=== PATIENT | male | born 1985 | race Caucasian/White ===

== ENCOUNTER 2016-05-14 23:12 | Emergency (ER) | payer OTHER ==
[~2016-05-14] VITALS: Ht 175.3 cm; Wt 113.6 kg
[~2016-05-14 23:12] MED LIST: DOCU-41 PO; IBUP800T28 PO; OXYC-466 PO
[2016-05-14 23:17] VITALS: BP 157/105; PULSE 111; RESP 18; O2SAT 95
[2016-05-15 00:32] LABS: BASOPHILS % (AUTO) 0.6 % (0-3); EOSINOPHILS % (AUTO) 4.4 % (0-5); MONOCYTES % (AUTO) 17.2 % (4-12); Mean Corpuscular Hemoglobin 29.3 pg (27.0-35.0); Mean Corpuscular Volume 81.7 fL (81-100); NEUTROPHILS % (AUTO) 45.8 % (40-74); Platelet Count 335 bil/L (150-400)
[2016-05-15 01:09] LABS: TROPONIN T 0.01 ug/L (0.0-0.011)
[2016-05-15 01:24] LABS: Magnesium 1.8 mg/dL (1.6-2.6)
[2016-05-15] MEDS ORDERED: Alum-Mag Hydrox-Simeth 30 mL Suspension PO ONE (01:35)
--- NOTE | 2016-05-15 02:50 | ED.REPORT ---
HPI-Chest Pain Under 40 Date of Service May 15, 2016 ED Provider: Mayito Simental MD Patient is a 30 year old male who presents to the ED due to mid chest pain onset one day ago. Pt says he has never experienced pain like this before and also complains of neck and shoulder pain. He does not have any pain with inspiration and has no leg or thigh pain or swelling. He has had a right leg boot for the past four months due to a fractured right ankle. Pt has had a mild cold for the past couple days and has felt slightly feverish. Nursing Notes Stated Complaint: CHEST PAIN Chief Complaint: Chest Pain-Non Cardiac Nature Nursing Notes Reviewed: Yes Allergies: Coded Allergies: No Known Allergies (Verified Allergy, Unknown, 03/01/16) Scheduled Omeprazole (Omeprazole) 20 Mg Capsule.dr 20 MG PO BID Scheduled PRN Docusate Sodium (Colace) 100 Mg Capsule 100 MG PO DAILY PRN PRN For Constipation Ibuprofen (Ibuprofen) 800 Mg Tablet 800 MG PO TID PRN PRN For Pain oxyCODONE-Acetaminophen 10-325 mg (oxyCODONE-Acetaminophen 10-325 mg) 1 Each Tablet 1 TABLET PO Q4H PRN PRN For Pain General Time Seen by MD: 01:12 Chief Complaint Chest pain Hx Obtained From: Patient Arrived By: Walk-in Sudden in Onset?: Yes Onset Occurred: Just prior to arrival Symptom Duration: Since onset Radiation: : Does not radiate Severity: Current: Mild Recent Healthcare: No recent doctor visit, No recent hospitalization Similar Sx Previous: No Past Medical History Past Medical History fractured right ankle IBS Past Surgical History None reported Smoking History Never Smoker Social History Alcohol Use: "Social" Drug Use: THC Other Social History: Good social support, Local resident Ambulatory Status Independent Review of Systems Constitutional: Reports: Chills, Fever Cardiovascular: Reports: Chest pain Musculoskeletal: Reports: Joint pain (shoulder), Neck pain, Denies: Extremity pain (no leg or thigh pain) Complete sys rev & neg: except as marked. Physical Exam Initial Vital Signs Vital Signs (First) Date Time Temp Pulse Resp B/P Pulse Ox O2 Delivery O2 Flow Rate FiO2 05/14/16 23:17 36.3 111 18 157/105 95 Room Air Initial VS: Reviewed, Vital signs abnormal Head / Eyes: Atraumatic, Normocephalic, PERRL ENT: Mucous membranes moist, Conjunctiva normal, No scleral icterus Neck: Supple, Non-tender, Full range of motion Abdomen / GI: Soft, Non-tender, No guarding, No rebound, No distention Back: No CVA tenderness Extremities: Vascular intact, Neuro intact, No swelling, No tenderness Skin: Warm, Dry, No cyanosis Neurologic: Alert, Oriented, Nonfocal Psychiatric: Mood/affect normal, Behavior normal, Normal thought content General/Constitutional: Awake, Alert, No acute distress, Well appearing, Well developed, Well hydrated Respiratory / Chest: Atraumatic, Breath sounds NL, Breath sounds = bilat, No respiratory distress, No rales, No rhonchi, No wheezing, No retractions Cardiovascular: Heart rate NL, Regular rhythm, Heart sounds NL, No gallop, No murmurs, No rubs chest nair nontender Interpretation & Diagnostics Interpretation & Diagnostics: CT ANGIOGRAM IMPRESSION: nondiagnostic for optimal assessment of pulmonary embolism. Recommend bilateral lower extremity venous duplex scan for fruther assess. No pulmonary consolidation or mass. Interpreted by Radiologist Lab Results Interpretation Result Diagram: 05/15/16 0005 05/15/16 0005 Test 05/15/16 00:05 White Blood Count 5.5th/mm3 (3.8-10.1) Red Blood Count 5.25mil/mm3 (4.40-5.80) Hemoglobin 15.4g/dL (13.8-17.2) Hematocrit 42.9% (41.0-50.0) Mean Corpuscular Volume 81.7fL (81-100) Mean Corpuscular Hemoglobin 29.3pg (27.0-35.0) Mean Corpuscular Hemoglobin Concent 35.9% (32.0-37.0) Red Cell Distribution Width 12.9% (12.3-15.4) Platelet Count 335bil/L (150-400) Neutrophils (%) (Auto) 45.8% (40-74) Lymphocytes (%) (Auto) 31.4% (14-46) Monocytes (%) (Auto) 17.2% (4-12) Eosinophils (%) (Auto) 4.4% (0-5) Basophils (%) (Auto) 0.6% (0-3) D-Dimer 0.6mg/L (<0.50) Sodium Level 133mEq/L (134-144) Potassium Level 3.4mEq/L (3.5-5.2) Chloride Level 95mEq/L (97-108) Carbon Dioxide Level 19mmol/L (18-29) Blood Urea Nitrogen 15mg/dL (6-20) Creatinine 0.81mg/dL (0.76-1.27) Estimat Glomerular Filtration Rate 120mL/min (>59) Glucose Level 104mg/dL (60-99) Calcium Level 9.8mg/dL (8.5-10.1) Magnesium Level 1.8mg/dL (1.6-2.6) Total Bilirubin 1.0mg/dL (0.0-1.2) Aspartate Amino Transf (AST/SGOT) 18U/L (0-50) Alanine Aminotransferase (ALT/SGPT) 21U/L (0-44) Alkaline Phosphatase 87U/L (25-150) Troponin T 0.010ug/L (0.0-0.011) Total Protein 7.9g/dL (6.4-8.4) Albumin 4.4g/dL (3.4-5.0) Hold Geronimo Top Tube Received (Received) Monoscreen Negative (Negative) Lab Results Interpretation: High mononuclear cell count, very mildly elevated d-dimer. X-Ray Chest Interpretation Chest Xray Interpretation: IMPRESSION: no acute abnormalities View: Portable Interpretation / Wet Read by: Wet read ED physician Re-Eval/Medical Decision Med Decision/Clinical Course Patient with midsternal chest pain of uncertain etiology. This does not appear to be cardiac in nature. There are no EKG changes and no elevated troponin. His d-dimer was mildly elevated at 0.[address] scanning was done. It was a sub- optimal study because of poor opacification of the arteries and the radiologist recommended bilateral DVT studies if there was concern. No other abnormalities of the vessels were noted. He did improve somewhat with a GI cocktail. He will be discharged home with Prilosec. Re-Evaluation/Progress : Time of Eval: 02:00 Patient Status: Condition unchanged Re-Evaluation/Progress Note: Pt rechecked. Informed pt of normal chest x-ray. Informed of need for chest CT. Pt understands and agrees with plan. Counseled Regarding: Diagnosis, Lab results, Need for follow-up, When/why to return to ED Discharge & Departure Primary Impression: Chest pain with low risk for cardiac etiology Disposition: Home Discharge Condition All VS Reviewed: Yes Condition: Stable Patient Instructions: Gastroesophageal Reflux Disease (ED) Additional Instructions: The most likely cause of your pain is acid reflux. Heart and lung evaluation appears normal. The CT scan of your chest was not a technically perfect study, but there does not appear to be a blood clot in your lung. This will be over read later this morning. We will call you if there is any concern. Start Prilosec 20 mg twice daily for a couple of weeks then 20 mg a day, prescription written. Referrals: Kelvin Adair MD (PCP) Jatinibgilbert Attestation Portions of this note were transcribed by Clive Mcdaniel. I, Dr. Simental personally performed the history, physical exam and medical decision-making; I reviewed and confirmed the accuracy of the information in the transcribed note. Signed by: Elvia Reyes, 05/15/16 0400 copies to: Kelvin Adair MD, Howard L MD May 15, 2016 02:50 CLIVE MCDANIEL May 15, 2016 02:53
[2016-05-15] MEDS ORDERED: OMEP20CA11 PO (04:46)
[2016-05-15 04:55] VITALS: BP 149/97; PULSE 71; RESP 16; O2SAT 96
--- NOTE | 2016-05-15 06:48 | DRSVH ---
PROCEDURE: CT ANGIO CHEST PULMONARY EMBOLISM ([id number]) INDICATIONS: 30 year-old male with shortness of breath and chest pain, with elevated d-dimer level. TECHNIQUE: After the administration of intravenous contrast, 2 mm thick sections acquired from the pulmonary api devonte to the posterior costophrenic angles. 3-dimensional maximum intensity projection (MIP) coronal a nd sagittal reformats were then acquired through the thorax. For radiation dose reduction, the follo wing was used: automated exposure control, adjustment of mA and/or kV according to patient size. COMPARISON: [facility], CR, XR CHEST 1VW (PORTABLE), 05/14/2016, 23:48. FINDINGS: Preliminary interpretation rendered by [employer] [facility]. Image quality: There is suboptimal contrast opacification of the pulmonary arteries. Pulmonary arteries: Pulmonary arteries are normal in size, and demonstrate no intraluminal filling d efects to suggest central pulmonary embolism. Lungs and pleura: Lungs are clear. No pleural effusions or pneumothorax. Central and peripheral ai rways are patent. Mediastinum: Heart size is normal, without pericardial effusion. No mediastinal or hilar adenopathy . Thoracic aorta is normal in caliber and enhancement. Esophagus is normal in caliber, without hiat al hernia. Bones and chest wall: No suspicious bony lesions. Ribs and thoracic spine appear intact throughout. Thyroid gland is normal in size but incompletely visualized. No axillary or supraclavicular adenop athy. Abdomen: Visualized upper abdominal solid organs appear normal in the early arterial phase of enhanc ement. IMPRESSION: 1. No evidence for central pulmonary embolism. Suboptimal contrast opacification of the pulmonary art eries would decrease examination sensitivity for segmental pulmonary embolism. 2. No acute pulmonary disease. No significant discrepancy with preliminary [employer] report. Dictated by: Gary Matos M.D. on 05/15/2016 at 6:40 Approved by: Gary Matos M.D. on 05/15/2016 at 6:46
--- NOTE | 2016-05-15 08:27 | DRSVH ---
PROCEDURE: X-RAY CHEST ONE VIEW, PORTABLE ([id number]) INDICATIONS: 30 year-old male with new onset of chest pain. TECHNIQUE: One view of the chest was acquired. COMPARISON: None. FINDINGS: Surgical changes and devices: None. Lungs and pleura: No pleural effusions or pneumothorax. Lungs are clear. Mediastinum: Mediastinal contours appear normal. Heart size is normal. Bones and chest wall: No suspicious bony lesions. Overlying soft tissues appear unremarkable. IMPRESSION: No acute cardiopulmonary disease. Dictated by: Gary Matos M.D. on 05/15/2016 at 8:25 Approved by: Gary Matos M.D. on 05/15/2016 at 8:25
== END 2016-05-15 04:50 | disposition home or self-care (01) ==
LOC: SED 23:12
DX: R07.89 Other chest pain (principal); M54.2 Cervicalgia; M25.519 Pain in unspecified shoulder; J00 Acute nasopharyngitis [common cold]
CPT/HCPCS: 36415; 71010; 71275; 80053; 83735; 84484; 85025; 85379; 86308; 93005; 99285; Q9967